=== PATIENT | male | born 1965 | race Caucasian/White ===

== ENCOUNTER 2021-07-23 15:37 | Emergency (ER) | payer SELFPAY ==
[~2021-07-23] VITALS: Ht 188 cm; Wt 83.9 kg
[2021-07-23] MEDS ORDERED: VANCOMYCIN 1,500 MG in D5W 5% 250 ML IV STA (21:17)
[2021-07-23] MEDS ORDERED: MORPHINE SULFATE 4 MG/ML SYR/VIAL IV ONE (21:30)
[2021-07-23] MEDS ORDERED: TETANUS-DIPTH-ACEL PERTUSSIS 0.5ML SYR Tdap IM ONE (21:30)
[2021-07-23] MEDS ORDERED: ONDANSETRON HCL 4 MG/2 ML VIAL IV ONE (21:30)
[2021-07-23] MEDS ORDERED: PIPERACILLIN-TAZO 4.5GM 100 ML IV ONE (21:30)
[2021-07-23] MEDS ORDERED: HYDROcodone-ACET 10/325MG TAB PO ONE (22:00)
[2021-07-23 22:26] LABS: Basophils # (auto) 0.1 10 ^3/uL (0-0.2); Basophils % (auto) 0.6 % (0.0-2.0); Eosinophils # (auto) 0.3 10 ^3/uL (0-0.8); Eosinophils % (auto) 2.9 % (0.0-7.0); Hematocrit 40.6 % (41.0-53.0); Hemoglobin 13.4 g/dL (13.5-17.5); Lymphocytes # (auto) 1.4 10 ^3/uL (0.4-5.4); Lymphocytes % (auto) 14.4 % (10.0-50.0); Mean Corpuscular Hemoglobin 29.2 pg (28.0-32.0); Mean Corpuscular Volume 88.3 fL (80.0-100.0); Monocytes # (auto) 1.1 10 ^3/uL (0-1.3); Monocytes % (auto) 10.5 % (0.0-12.0); Neutrophils # (auto) 7.2 10 ^3/uL (1.6-8.6); Neutrophils % (auto) 71.6 % (37.0-80.0); Nucleated Red Blood Cells % 0.1 %; Red Cell Distribution Width 13.5 % (11.8-14.3)
[2021-07-23 22:56] LABS: Calcium 8.8 mg/dL (8.5-10.1); Potassium 3.9 mmol/L (3.5-5.1)
[2021-07-23 22:58] LABS: BUN/Creatinine Ratio 15.5
[2021-07-24] MEDS ORDERED: VANCOMYCIN 1GM/250ML 250 ML IV ONE ×2 (04:00)
[2021-07-24 05:11] VITALS: BP 123/75
[2021-07-24] MEDS ORDERED: ONDANSETRON HCL 4 MG/2 ML VIAL IV ONE (05:15)
[2021-07-24] MEDS ORDERED: MORPHINE SULFATE 4 MG/ML SYR/VIAL IV ONE (05:15)
== END 2021-07-24 14:45 | disposition left against medical advice (07) ==
LOC: ER 15:37
DX: M86.8X4 Other osteomyelitis, hand (principal); Z53.29 Procedure and treatment not carried out because of patient's decision for other reasons
CPT/HCPCS: 36415; 73130; 80048; 83605; 85025; 85652; 87040; 90471; 90715; 96365; 96366; 96367; 96375; 99284; J2270; J2405; J2543; J3370; J7060

== ENCOUNTER 2023-06-18 14:52 | Inpatient (IN) | payer MEDICAID, OTHER ==
[~2023-06-18] VITALS: Ht 185.4 cm; Wt 74.0 kg
[2023-06-18 15:33] LABS: Basophils # (auto) 0.1 10 ^3/uL (0-0.2); Basophils % (auto) 0.6 % (0.0-2.0); Eosinophils # (auto) 0.3 10 ^3/uL (0-0.8); Lymphocytes % (auto) 17.3 % (10.0-50.0); White Blood Cell 11.7 10^3/uL (4.4-10.8)
[2023-06-18 15:35] LABS: Eosinophils % (auto) 2.4 % (0.0-7.0); Hemoglobin 7.9 g/dL (13.5-17.5); Mean Corpuscular Hemoglobin 19.9 pg (28.0-32.0); Mean Corpuscular Hgb Conc. 29.5 g/dL (32.0-36.0); Mean Corpuscular Volume 67.4 fL (80.0-100.0); Monocytes # (auto) 1.3 10 ^3/uL (0-1.3); Monocytes % (auto) 11.4 % (0.0-12.0); Neutrophils % (auto) 68.3 % (37.0-80.0); Nucleated Red Blood Cells % 0.1 %; Red Cell Distribution Width 17.7 % (11.8-14.3)
[2023-06-18 16:08] LABS: Alanine Aminotransferase 23 U/L (7-40); Albumin 4.2 g/dL (3.2-4.8); Alkaline Phosphatase 181 U/L (46-116); Anion Gap 6 (5-15); Aspartate Aminotransferase 33 U/L (13-40); BUN/Creatinine Ratio 19.7 (10.0-20.0); Blood Urea Nitrogen 15 mg/dL (9-23); Calcium 8.9 mg/dL (8.7-10.4); Carbon Dioxide 30 mmol/L (20-30); Chloride 101 mmol/L (98-107); Glucose 106 mg/dL (74-106); Potassium 3.6 mmol/L (3.5-5.1); Sodium 137 mmol/L (136-145)
[2023-06-18 16:09] LABS: Bilirubin, Total 0.4 mg/dL (0.2-1.0); Total Protein 7.6 g/dL (5.7-8.2)
[2023-06-18] MEDS ORDERED: ENOXAPARIN SOD 80 MG/0.8ML SYRINGE SC ONE (16:30)
[2023-06-18] MEDS ORDERED: methylPREDNISolone SOD SUCC 125 MG/2 ML VL IV ONE (16:30)
[2023-06-18] MEDS ORDERED: IOHEXOL 350 MG/ML 100ML IJ ONE (16:35)
[2023-06-18 17:30] LABS: Hypochromia Marked; Platelet Estimate Adequate
[2023-06-18] MEDS ORDERED: HEPARIN SODIUM (PORCINE) 5000 UNITS/ML 1ML VIAL IV ONE (17:45)
[2023-06-18] MEDS ORDERED: MORPHINE SULFATE INJ 2 MG/ml SYRG IV PRN (19:00)
[2023-06-18] MEDS ORDERED: NITROGLYCERIN 0.4 MG SL TAB SL PRN (19:00)
[2023-06-18] MEDS ORDERED: ALBUTEROL SULF 2.5 MG/0.5ML(0.5%) NEB SOLN NEB PRN (19:00)
[2023-06-18] MEDS: SODIUM CHLORIDE 0.9% 1,000 ML IV SCH (20:52)
[2023-06-18 21:16] VITALS: PULSE 107; RESP 20; O2SAT 93
[2023-06-18 22:30] VITALS: PULSE 105; RESP 18; O2SAT 95
[2023-06-18] MEDS: ALBUTEROL SULF 2.5 MG/0.5ML(0.5%) NEB SOLN NEB SCH (22:30)
[2023-06-18] MEDS: IPRATROPIUM BROM 0.5 MG/2.5ML INH SOL NEB SCH (22:31)
[2023-06-18 23:40] VITALS: BP 101/57; PULSE 104; RESP 20; TEMP 98.2; O2SAT 93
[2023-06-19] VITALS (21 sets, daily range): BP systolic 100–132; BP diastolic 57–65; PULSE 68–105; RESP 16–20; TEMP 97.3–98.8; O2SAT 93–100
[2023-06-19 00:30] LABS: COVID19 ANTIGEN SOFIA FIA NEGATIVE (NEGATIVE)
[2023-06-19 00:31] LABS: Rapid Influenza A Negative (Negative); Rapid Influenza B Negative (Negative)
[2023-06-19] MEDS: IPRATROPIUM BROM 0.5 MG/2.5ML INH SOL NEB SCH ×6 (02:48→22:01)
[2023-06-19] MEDS: ALBUTEROL SULF 2.5 MG/0.5ML(0.5%) NEB SOLN NEB SCH ×6 (02:48→22:01)
[2023-06-19 03:08] LABS: Urine Bacteria NONE SEEN /hpf (None Seen); Urine Blood Negative /uL (Negative); Urine Clarity Clear (Clear); Urine Color Yellow (Yellow); Urine Mucus FEW (None Seen); Urine Protein, UAD TRACE (Negative); Urine WBC <1 /hpf (0 - 3); Urine pH 5.5 (5.0-8.0)
[2023-06-19 03:16] LABS: Urine Specific Gravity > 1.050 (1.001-1.035)
[2023-06-19] MEDS: SODIUM CHLORIDE 0.9% 1,000 ML IV SCH ×2 (05:00→15:00)
[2023-06-19] MEDS: ENOXAPARIN SOD 80 MG/0.8ML SYRINGE SC SCH ×2 (06:31→18:33)
[2023-06-19 06:45] LABS: Basophils # (auto) 0 10 ^3/uL (0-0.2); Eosinophils # (auto) 0 10 ^3/uL (0-0.8); Hemoglobin 7.3 g/dL (13.5-17.5); Lymphocytes # (auto) 1.1 10 ^3/uL (0.4-5.4); Monocytes # (auto) 0.8 10 ^3/uL (0-1.3)
[2023-06-19 06:48] LABS: Basophils % (auto) 0.1 % (0.0-2.0); Hematocrit 23.2 % (41.0-53.0); Lymphocytes % (auto) 9.9 % (10.0-50.0); Mean Corpuscular Hemoglobin 21.2 pg (28.0-32.0); Mean Corpuscular Hgb Conc. 31.6 g/dL (32.0-36.0); Monocytes % (auto) 7.5 % (0.0-12.0); Neutrophils # (auto) 9.1 10 ^3/uL (1.6-8.6); Neutrophils % (auto) 82.5 % (37.0-80.0); Red Blood Cells 3.46 10^6/uL (4.5-5.90); Red Cell Distribution Width 17.4 % (11.8-14.3)
[2023-06-19 07:14] LABS: Alanine Aminotransferase 23 U/L (7-40); Alkaline Phosphatase 155 U/L (46-116); Anion Gap 10 (5-15); Aspartate Aminotransferase 29 U/L (13-40); Blood Urea Nitrogen 16 mg/dL (9-23); Calcium 8.7 mg/dL (8.5-10.1); Carbon Dioxide 24 mmol/L (20-30); Chloride 104 mmol/L (98-107); Glucose 140 mg/dL (74-106); Potassium 4.2 mmol/L (3.5-5.1); Sodium 138 mmol/L (136-145)
[2023-06-19 07:15] LABS: Albumin 3.8 g/dL (3.2-4.8); Bilirubin, Total 0.3 mg/dL (0.2-1.0); Total Protein 6.7 g/dL (5.7-8.2)
[2023-06-20] VITALS (24 sets, daily range): BP systolic 99–129; BP diastolic 55–70; PULSE 80–105; RESP 16–20; TEMP 97.6–98.6; O2SAT 93–100
[2023-06-20] MEDS: ALBUTEROL SULF 2.5 MG/0.5ML(0.5%) NEB SOLN NEB SCH ×6 (01:46→21:53)
[2023-06-20] MEDS: IPRATROPIUM BROM 0.5 MG/2.5ML INH SOL NEB SCH ×6 (01:46→21:53)
[2023-06-20 05:48] LABS: Basophils # (auto) 0.1 10 ^3/uL (0-0.2); Lymphocytes # (auto) 2.1 10 ^3/uL (0.4-5.4)
[2023-06-20 05:51] LABS: Basophils % (auto) 0.6 % (0.0-2.0); Eosinophils # (auto) 0.1 10 ^3/uL (0-0.8); Eosinophils % (auto) 1.3 % (0.0-7.0); Hematocrit 22.1 % (41.0-53.0); Lymphocytes % (auto) 17.8 % (10.0-50.0); Mean Corpuscular Hemoglobin 20.6 pg (28.0-32.0); Mean Corpuscular Hgb Conc. 30.7 g/dL (32.0-36.0); Mean Corpuscular Volume 67.3 fL (80.0-100.0); Monocytes # (auto) 1.2 10 ^3/uL (0-1.3); Monocytes % (auto) 10.7 % (0.0-12.0); Neutrophils # (auto) 8.1 10 ^3/uL (1.6-8.6); Neutrophils % (auto) 69.6 % (37.0-80.0); Red Blood Cells 3.28 10^6/uL (4.5-5.90); Red Cell Distribution Width 17.5 % (11.8-14.3); White Blood Cell 11.6 10^3/uL (4.4-10.8)
[2023-06-20] MEDS: SODIUM CHLORIDE 0.9% 1,000 ML IV SCH ×3 (05:56→21:00)
[2023-06-20 06:01] LABS: Hemoglobin 6.8 g/dL (13.5-17.5)
[2023-06-20 06:07] LABS: Alanine Aminotransferase 20 U/L (7-40); Alkaline Phosphatase 147 U/L (46-116); Anion Gap 5 (5-15); BUN/Creatinine Ratio 22.2 (10.0-20.0); Blood Urea Nitrogen 16 mg/dL (9-23); Calcium 8.4 mg/dL (8.7-10.4); Carbon Dioxide 27 mmol/L (20-30); Chloride 105 mmol/L (98-107); Glucose 100 mg/dL (74-106); Potassium 4.2 mmol/L (3.5-5.1); Sodium 137 mmol/L (136-145)
[2023-06-20 06:09] LABS: Albumin 3.5 g/dL (3.2-4.8); Aspartate Aminotransferase 27 U/L (13-40); Bilirubin, Total 0.3 mg/dL (0.2-1.0); Total Protein 6.4 g/dL (5.7-8.2)
[2023-06-20] MEDS: ACETAMINOPHEN 325 MG TAB PO PRN ×2 (07:06→23:41)
[2023-06-20] MEDS: ENOXAPARIN SOD 80 MG/0.8ML SYRINGE SC SCH ×2 (07:06→18:04)
[2023-06-20 08:06] LABS: AFP Serum Tumor Marker <1.8 ng/mL (0.0-8.4)
[2023-06-20 14:41] LABS: Hepatitis B Surface Antigen Negative (Negative)
[2023-06-20 15:01] LABS: Hepatitis A Ab IgM Negative
[2023-06-20 15:02] LABS: Hepatitis B Core IgM Negative
[2023-06-20 15:03] LABS: Hepatitis C Antibody Negative (Negative)
[2023-06-20 17:33] LABS: Hematocrit 46.6 % (41.0-53.0); Hemoglobin 14.9 g/dL (13.5-17.5)
[2023-06-21] VITALS (20 sets, daily range): BP systolic 107–124; BP diastolic 65–73; PULSE 82–106; RESP 16–18; TEMP 98.6–98.9; O2SAT 92–100
[2023-06-21] MEDS: ALBUTEROL SULF 2.5 MG/0.5ML(0.5%) NEB SOLN NEB SCH ×6 (01:58→22:15)
[2023-06-21] MEDS: IPRATROPIUM BROM 0.5 MG/2.5ML INH SOL NEB SCH ×6 (01:58→22:15)
[2023-06-21] MEDS: ENOXAPARIN SOD 80 MG/0.8ML SYRINGE SC SCH ×2 (06:27→20:27)
[2023-06-21] MEDS: ACETAMINOPHEN 325 MG TAB PO PRN ×2 (06:27→20:25)
[2023-06-21] MEDS: SODIUM CHLORIDE 0.9% 1,000 ML IV SCH ×2 (06:28→17:00)
[2023-06-21 07:56] LABS: Basophils # (auto) 0 10 ^3/uL (0-0.2); Eosinophils # (auto) 0.3 10 ^3/uL (0-0.8); Hemoglobin 8.6 g/dL (13.5-17.5); Lymphocytes # (auto) 1.4 10 ^3/uL (0.4-5.4); Mean Corpuscular Volume 69.2 fL (80.0-100.0); White Blood Cell 9.6 10^3/uL (4.4-10.8)
[2023-06-21 07:59] LABS: Basophils % (auto) 0.5 % (0.0-2.0); Eosinophils % (auto) 2.7 % (0.0-7.0); Hematocrit 27.4 % (41.0-53.0); Lymphocytes % (auto) 14.3 % (10.0-50.0); Mean Corpuscular Hemoglobin 21.7 pg (28.0-32.0); Mean Corpuscular Hgb Conc. 31.3 g/dL (32.0-36.0); Monocytes % (auto) 10.5 % (0.0-12.0); Red Blood Cells 3.96 10^6/uL (4.5-5.90); Red Cell Distribution Width 19.1 % (11.8-14.3)
[2023-06-21 08:06] LABS: PSA Free 0.08 ng/mL; Prostate Specific Antigen 0.4 ng/mL (0.0-4.0)
[2023-06-21 08:14] LABS: Alanine Aminotransferase 30 U/L (7-40); Albumin 3.9 g/dL (3.2-4.8); Alkaline Phosphatase 178 U/L (46-116); Anion Gap 9 (5-15); Aspartate Aminotransferase 33 U/L (13-40); BUN/Creatinine Ratio 21.2 (10.0-20.0); Bilirubin, Total 0.4 mg/dL (0.2-1.0); Blood Urea Nitrogen 14 mg/dL (9-23); Calcium 9.1 mg/dL (8.5-10.1); Carbon Dioxide 26 mmol/L (20-30); Chloride 101 mmol/L (98-107); Glucose 95 mg/dL (74-106); Potassium 4.2 mmol/L (3.5-5.1); Sodium 136 mmol/L (136-145)
[2023-06-21] MEDS ORDERED: ONDANSETRON ODT 4 MG TAB PO ONE (15:00)
[2023-06-22] VITALS (16 sets, daily range): BP systolic 106–128; BP diastolic 48–80; PULSE 70–103; RESP 16–20; TEMP 37; O2SAT 90–100
[2023-06-22] MEDS: SODIUM CHLORIDE 0.9% 1,000 ML IV SCH ×3 (00:32→23:00)
[2023-06-22] MEDS: IPRATROPIUM BROM 0.5 MG/2.5ML INH SOL NEB SCH ×6 (02:00→22:46)
[2023-06-22] MEDS: ALBUTEROL SULF 2.5 MG/0.5ML(0.5%) NEB SOLN NEB SCH ×6 (02:00→22:46)
[2023-06-22] MEDS: ENOXAPARIN SOD 80 MG/0.8ML SYRINGE SC SCH ×2 (06:53→17:59)
[2023-06-22 07:15] LABS: Basophils # (auto) 0.1 10 ^3/uL (0-0.2); Eosinophils # (auto) 0.2 10 ^3/uL (0-0.8); Neutrophils # (auto) 8.6 10 ^3/uL (1.6-8.6)
[2023-06-22 07:16] LABS: Basophils % (auto) 0.5 % (0.0-2.0); Eosinophils % (auto) 1.6 % (0.0-7.0); Hematocrit 28.2 % (41.0-53.0); Hemoglobin 8.8 g/dL (13.5-17.5); Lymphocytes # (auto) 1.3 10 ^3/uL (0.4-5.4); Mean Corpuscular Hemoglobin 21.7 pg (28.0-32.0); Mean Corpuscular Hgb Conc. 31.1 g/dL (32.0-36.0); Mean Corpuscular Volume 69.8 fL (80.0-100.0); Monocytes # (auto) 1.2 10 ^3/uL (0-1.3); Monocytes % (auto) 10.8 % (0.0-12.0); Neutrophils % (auto) 76.1 % (37.0-80.0); Red Blood Cells 4.04 10^6/uL (4.5-5.90); White Blood Cell 11.3 10^3/uL (4.4-10.8)
[2023-06-22 07:40] LABS: Alanine Aminotransferase 36 U/L (7-40); Albumin 3.9 g/dL (3.2-4.8); Alkaline Phosphatase 179 U/L (46-116); Anion Gap 11 (5-15); Aspartate Aminotransferase 52 U/L (13-40); Blood Urea Nitrogen 18 mg/dL (9-23); Calcium 9.1 mg/dL (8.5-10.1); Carbon Dioxide 24 mmol/L (20-30); Chloride 98 mmol/L (98-107); Glucose 87 mg/dL (74-106); Potassium 4.5 mmol/L (3.5-5.1); Sodium 133 mmol/L (136-145)
[2023-06-22 07:41] LABS: Bilirubin, Total 0.4 mg/dL (0.2-1.0); Total Protein 7.1 g/dL (5.7-8.2)
[2023-06-22 09:58] LABS: Hypochromia Moderate
[2023-06-22 09:59] LABS: Ovalocytes FEW; Platelet Estimate Adequate
[2023-06-22] MEDS: ACETAMINOPHEN 325 MG TAB PO PRN (16:09)
[2023-06-23] VITALS (18 sets, daily range): BP systolic 102–127; BP diastolic 62–75; PULSE 75–100; RESP 16–20; TEMP 97.6–98.9; O2SAT 93–99
[2023-06-23] MEDS: ALBUTEROL SULF 2.5 MG/0.5ML(0.5%) NEB SOLN NEB SCH ×6 (02:00→21:49)
[2023-06-23] MEDS: IPRATROPIUM BROM 0.5 MG/2.5ML INH SOL NEB SCH ×6 (02:00→21:49)
[2023-06-23] MEDS: ENOXAPARIN SOD 80 MG/0.8ML SYRINGE SC SCH ×2 (05:55→18:06)
[2023-06-23 07:06] LABS: Basophils # (auto) 0.1 10 ^3/uL (0-0.2); Eosinophils # (auto) 0.4 10 ^3/uL (0-0.8); Lymphocytes # (auto) 1.6 10 ^3/uL (0.4-5.4); Monocytes # (auto) 1.5 10 ^3/uL (0-1.3); Neutrophils # (auto) 8.4 10 ^3/uL (1.6-8.6)
[2023-06-23 07:09] LABS: Basophils % (auto) 0.6 % (0.0-2.0); Eosinophils % (auto) 3.3 % (0.0-7.0); Hematocrit 29.2 % (41.0-53.0); Hemoglobin 8.9 g/dL (13.5-17.5); Lymphocytes % (auto) 13.7 % (10.0-50.0); Mean Corpuscular Hemoglobin 21.2 pg (28.0-32.0); Mean Corpuscular Hgb Conc. 30.6 g/dL (32.0-36.0); Mean Corpuscular Volume 69.3 fL (80.0-100.0); Monocytes % (auto) 12.5 % (0.0-12.0); Neutrophils % (auto) 69.9 % (37.0-80.0); Red Blood Cells 4.22 10^6/uL (4.5-5.90); Red Cell Distribution Width 19.2 % (11.8-14.3)
[2023-06-23 08:56] LABS: Alanine Aminotransferase 44 U/L (7-40); Alkaline Phosphatase 209 U/L (46-116); Anion Gap 9 (5-15); BUN/Creatinine Ratio 20.5 (10.0-20.0); Blood Urea Nitrogen 16 mg/dL (9-23); Calcium 8.9 mg/dL (8.7-10.4); Carbon Dioxide 25 mmol/L (20-30); Chloride 99 mmol/L (98-107); Glucose 94 mg/dL (74-106); Potassium 4.5 mmol/L (3.5-5.1); Sodium 133 mmol/L (136-145)
[2023-06-23 08:57] LABS: Albumin 4.1 g/dL (3.2-4.8); Aspartate Aminotransferase 54 U/L (13-40)
[2023-06-23 08:58] LABS: Bilirubin, Total 0.5 mg/dL (0.2-1.0); Total Protein 7.3 g/dL (5.7-8.2)
[2023-06-23] MEDS: SODIUM CHLORIDE 0.9% 1,000 ML IV SCH ×2 (09:00→18:50)
[2023-06-23 10:28] LABS: Platelet Estimate Adequate
[2023-06-23 10:29] LABS: Hypochromia Moderate; Target Cell FEW
[2023-06-23 10:30] LABS: Anisocytosis Slight
[2023-06-23] MEDS ORDERED: HYDROcodone-ACET 5/325MG TAB PO ONE (21:45)
[2023-06-23] MEDS ORDERED: ONDANSETRON HCL 4 MG/2 ML VIAL IV PRN (21:45)
[2023-06-24] VITALS (18 sets, daily range): BP systolic 105–117; BP diastolic 2–71; PULSE 76–95; RESP 16–20; TEMP 97.6–98.6; O2SAT 91–100
[2023-06-24] MEDS: ALBUTEROL SULF 2.5 MG/0.5ML(0.5%) NEB SOLN NEB SCH ×6 (02:00→22:25)
[2023-06-24] MEDS: IPRATROPIUM BROM 0.5 MG/2.5ML INH SOL NEB SCH ×6 (02:00→22:25)
[2023-06-24 06:43] LABS: Mean Corpuscular Volume 69.7 fL (80.0-100.0)
[2023-06-24 06:46] LABS: Basophils # (auto) 0 10 ^3/uL (0-0.2); Basophils % (auto) 0.4 % (0.0-2.0); Eosinophils # (auto) 0.4 10 ^3/uL (0-0.8); Eosinophils % (auto) 3.3 % (0.0-7.0); Hematocrit 28.6 % (41.0-53.0); Hemoglobin 8.6 g/dL (13.5-17.5); Lymphocytes # (auto) 1.6 10 ^3/uL (0.4-5.4); Lymphocytes % (auto) 14.1 % (10.0-50.0); Mean Corpuscular Hemoglobin 20.9 pg (28.0-32.0); Monocytes # (auto) 1.5 10 ^3/uL (0-1.3); Neutrophils # (auto) 7.9 10 ^3/uL (1.6-8.6); Neutrophils % (auto) 69.2 % (37.0-80.0); Red Blood Cells 4.11 10^6/uL (4.5-5.90); White Blood Cell 11.5 10^3/uL (4.4-10.8)
[2023-06-24] MEDS: ENOXAPARIN SOD 80 MG/0.8ML SYRINGE SC SCH ×2 (06:46→18:16)
[2023-06-24] MEDS: SODIUM CHLORIDE 0.9% 1,000 ML IV SCH ×2 (06:48→17:44)
[2023-06-24 06:56] LABS: Chloride 102 mmol/L (98-107); Potassium 4.2 mmol/L (3.5-5.1); Sodium 136 mmol/L (136-145)
[2023-06-24 06:57] LABS: Anion Gap 7 (5-15); Calcium 8.9 mg/dL (8.5-10.1); Carbon Dioxide 27 mmol/L (20-30)
[2023-06-24 07:02] LABS: BUN/Creatinine Ratio 23.5 (10.0-20.0); Blood Urea Nitrogen 16 mg/dL (9-23); Glucose 86 mg/dL (74-106)
[2023-06-24 07:21] LABS: Red Cell Distribution Width 20.8 % (11.8-14.3)
[2023-06-24] MEDS: ACETAMINOPHEN 325 MG TAB PO PRN (23:29)
[2023-06-25] VITALS (13 sets, daily range): BP systolic 110–122; BP diastolic 63–68; PULSE 79–103; RESP 16–18; TEMP 97.3–98.4; O2SAT 95–100
[2023-06-25] MEDS: SODIUM CHLORIDE 0.9% 1,000 ML IV SCH ×2 (01:14→10:26)
[2023-06-25] MEDS: IPRATROPIUM BROM 0.5 MG/2.5ML INH SOL NEB SCH ×5 (02:00→18:48)
[2023-06-25] MEDS: ALBUTEROL SULF 2.5 MG/0.5ML(0.5%) NEB SOLN NEB SCH ×5 (02:00→18:48)
[2023-06-25] MEDS: ENOXAPARIN SOD 80 MG/0.8ML SYRINGE SC SCH ×3 (06:19→17:37)
[2023-06-25 06:55] LABS: Basophils # (auto) 0.1 10 ^3/uL (0-0.2); Eosinophils # (auto) 0.4 10 ^3/uL (0-0.8); Eosinophils % (auto) 3.8 % (0.0-7.0); Lymphocytes # (auto) 1.5 10 ^3/uL (0.4-5.4); Monocytes # (auto) 1.5 10 ^3/uL (0-1.3); Neutrophils # (auto) 7.9 10 ^3/uL (1.6-8.6)
[2023-06-25 06:58] LABS: Chloride 104 mmol/L (98-107); Sodium 137 mmol/L (136-145)
[2023-06-25 06:59] LABS: Anion Gap 7 (5-15); Basophils % (auto) 0.6 % (0.0-2.0); Calcium 8.6 mg/dL (8.5-10.1); Carbon Dioxide 26 mmol/L (20-30); Hematocrit 25.2 % (41.0-53.0); Hemoglobin 7.6 g/dL (13.5-17.5); Lymphocytes % (auto) 13.4 % (10.0-50.0); Mean Corpuscular Hemoglobin 21.2 pg (28.0-32.0); Mean Corpuscular Hgb Conc. 30.4 g/dL (32.0-36.0); Mean Corpuscular Volume 69.7 fL (80.0-100.0); Monocytes % (auto) 13.3 % (0.0-12.0); Neutrophils % (auto) 68.9 % (37.0-80.0); Nucleated Red Blood Cells % 0.1 %; Red Blood Cells 3.61 10^6/uL (4.5-5.90); White Blood Cell 11.4 10^3/uL (4.4-10.8)
[2023-06-25 07:04] LABS: BUN/Creatinine Ratio 20.9 (10.0-20.0); Blood Urea Nitrogen 14 mg/dL (9-23); Glucose 93 mg/dL (74-106)
[2023-06-25 07:15] LABS: Red Cell Distribution Width 20.6 % (11.8-14.3)
[2023-06-25 08:49] LABS: Anisocytosis Slight
[2023-06-25 08:50] LABS: Hypochromia Moderate
[2023-06-25 08:52] LABS: Platelet Estimate Increased
[2023-06-25] MEDS: ACETAMINOPHEN 325 MG TAB PO PRN ×2 (10:30→20:31)
[2023-06-25] MEDS ORDERED: IOHEXOL 300 MG/ML 100ML BOTTLE IJ ONE (14:37)
[2023-06-25 15:25] LABS: INR 1.11 (0.9-1.15); Partial Thromboplastin Time 31.6 SEC (24.5-34.5); Prothrombin Time 11.6 sec (9.3-11.8)
[2023-06-26 05:00] VITALS: BP 117/51; PULSE 68; RESP 18; TEMP 97.7; O2SAT 97
[2023-06-26 08:00] VITALS: BP 116/65; PULSE 88; RESP 16; TEMP 98.2; O2SAT 96
[2023-06-26 08:02] LABS: Basophils # (auto) 0.1 10 ^3/uL (0-0.2); Basophils % (auto) 0.6 % (0.0-2.0); Eosinophils # (auto) 0.4 10 ^3/uL (0-0.8); Neutrophils % (auto) 71.8 % (37.0-80.0)
[2023-06-26 08:06] LABS: Eosinophils % (auto) 4.1 % (0.0-7.0); Hematocrit 27.1 % (41.0-53.0); Hemoglobin 8.5 g/dL (13.5-17.5); Lymphocytes # (auto) 1.2 10 ^3/uL (0.4-5.4); Lymphocytes % (auto) 11.6 % (10.0-50.0); Mean Corpuscular Hemoglobin 21.9 pg (28.0-32.0); Mean Corpuscular Hgb Conc. 31.2 g/dL (32.0-36.0); Monocytes # (auto) 1.3 10 ^3/uL (0-1.3); Monocytes % (auto) 11.9 % (0.0-12.0); Neutrophils # (auto) 7.6 10 ^3/uL (1.6-8.6); Red Blood Cells 3.87 10^6/uL (4.5-5.90); White Blood Cell 10.6 10^3/uL (4.4-10.8)
[2023-06-26 08:09] LABS: Chloride 101 mmol/L (98-107); Sodium 135 mmol/L (136-145)
[2023-06-26 08:10] LABS: Anion Gap 5 (5-15); Carbon Dioxide 29 mmol/L (20-30)
[2023-06-26 08:11] LABS: Calcium 9.1 mg/dL (8.5-10.1)
[2023-06-26 08:15] LABS: BUN/Creatinine Ratio 20.3 (10.0-20.0); Blood Urea Nitrogen 13 mg/dL (9-23); Glucose 92 mg/dL (74-106)
[2023-06-26] MEDS ORDERED: fentaNYL CITRATE 100 MCG/2 ML VL IV ONE (08:30)
[2023-06-26] MEDS ORDERED: MIDAZOLAM HCL 2MG/2ML 2ml VIAL (1mg/ml) IV ONE (08:30)
[2023-06-26 08:40] LABS: Red Cell Distribution Width 20.9 % (11.8-14.3)
[2023-06-26] MEDS ORDERED: NALOXONE HCL 1MG/ML 2ML SYRINGE ONE (08:43)
[2023-06-26] MEDS ORDERED: LIDOCAINE 2%HCL (LOCAL ANESTH.) INJ 10ml MDV ONE (08:45)
[2023-06-26 09:20] LABS: Anisocytosis Slight; Platelet Estimate Increased
[2023-06-26 09:21] LABS: Hypochromia Moderate
[2023-06-26] MEDS ORDERED: APIX5TAB PO ×2 (10:30)
[2023-06-26 11:06] LABS: Ferritin 40.8 ng/mL (22-322)
[2023-06-26 12:00] VITALS: BP 104/64; PULSE 94; RESP 16; TEMP 98.5; O2SAT 97
[2023-06-26 12:44] VITALS: O2SAT 93
[2023-06-26 16:00] VITALS: BP 108/62; PULSE 107; RESP 18; TEMP 98; O2SAT 93
== END 2023-06-26 17:32 | disposition home or self-care (01) | DRG 133 ==
LOC: ER 14:52 → TELE 19:00 → TELE-WESTW 23:43 → WEST WING 06-24 12:45
PROVIDERS: ADMIT Internal Medicine Pulmonary Disease; ATTEND Internal Medicine Pulmonary Disease
PROC: 30233N1 Transfusion of Nonautologous Red Blood Cells into Peripheral Vein, Percutaneous Approach (ICD-10-PCS; principal; 2023-06-20)
PROC: 0FB13ZX Excision of Right Lobe Liver, Percutaneous Approach, Diagnostic (ICD-10-PCS; 2023-06-26)
DX: J96.01 Acute respiratory failure with hypoxia (principal); I26.99 Other pulmonary embolism without acute cor pulmonale; I82.432 Acute embolism and thrombosis of left popliteal vein; R16.0 Hepatomegaly, not elsewhere classified; E11.65 Type 2 diabetes mellitus with hyperglycemia; D50.9 Iron deficiency anemia, unspecified; R74.8 Abnormal levels of other serum enzymes; R60.0 Localized edema; Z20.822 Contact with and (suspected) exposure to COVID-19; F17.210 Nicotine dependence, cigarettes, uncomplicated; I82.443 Acute embolism and thrombosis of tibial vein, bilateral
CPT/HCPCS: 10005; 36415; 71045; 71275; 74150; 74178; 76705; 77012; 80048; 80053; 80074; 81001; 82105; 82270; 82378; 82607; 82728; 83036; 83540; 83550; 83615; 83880; 84154; 84484; 85014; 85018; 85025; 85379; 85610; 85730; 86301; 86703; 86850; 86900; 86901; 86920; 87426; 87804; 93005; 93970; 94640; G0378; J2001; J2250; J2405; Q0162

== ENCOUNTER 2023-06-28 12:39 | Inpatient (IN) | payer MEDICAID ==
[~2023-06-28] VITALS: Ht 188 cm; Wt 75.3 kg
[2023-06-28] VITALS (7 sets, daily range): BP systolic 102; BP diastolic 71; PULSE 86–107; RESP 16–19; TEMP 99.5; O2SAT 10–100
[2023-06-28] MEDS ORDERED: methylPREDNISolone SOD SUCC 125 MG/2 ML VL IV ONE (13:00)
[2023-06-28 13:51] LABS: Basophils # (auto) 0 10 ^3/uL (0-0.2); Basophils % (auto) 0.4 % (0.0-2.0); Eosinophils # (auto) 0.2 10 ^3/uL (0-0.8); Eosinophils % (auto) 2.1 % (0.0-7.0); Hematocrit 26.6 % (41.0-53.0); Hemoglobin 8.2 g/dL (13.5-17.5); Lymphocytes # (auto) 1.5 10 ^3/uL (0.4-5.4); Lymphocytes % (auto) 12.7 % (10.0-50.0); Mean Corpuscular Hemoglobin 21.6 pg (28.0-32.0); Mean Corpuscular Hgb Conc. 30.9 g/dL (32.0-36.0); Mean Corpuscular Volume 69.8 fL (80.0-100.0); Monocytes # (auto) 1.5 10 ^3/uL (0-1.3); Monocytes % (auto) 13.1 % (0.0-12.0); Neutrophils # (auto) 8.3 10 ^3/uL (1.6-8.6); Neutrophils % (auto) 71.7 % (37.0-80.0); Red Blood Cells 3.81 10^6/uL (4.5-5.90); Red Cell Distribution Width 21.6 % (11.8-14.3); White Blood Cell 11.5 10^3/uL (4.4-10.8)
[2023-06-28 14:04] LABS: Alanine Aminotransferase 75 U/L (7-40); Albumin 4.1 g/dL (3.2-4.8); Alkaline Phosphatase 229 U/L (46-116); Anion Gap 5 (5-15); Aspartate Aminotransferase 47 U/L (13-40); BUN/Creatinine Ratio 32.4 (10.0-20.0); Blood Urea Nitrogen 23 mg/dL (9-23); Carbon Dioxide 31 mmol/L (20-30); Chloride 100 mmol/L (98-107); Glucose 88 mg/dL (74-106); Potassium 4.1 mmol/L (3.5-5.1); Sodium 136 mmol/L (136-145)
[2023-06-28 14:05] LABS: Bilirubin, Total 0.4 mg/dL (0.2-1.0)
[2023-06-28] MEDS ORDERED: APIX5TAB PO (14:43)
[2023-06-28] MEDS ORDERED: ALBUTEROL SULF 2.5 MG/0.5ML(0.5%) NEB SOLN NEB PRN (14:45)
[2023-06-28] MEDS ORDERED: IOHEXOL 350 MG/ML 100ML IJ ONE (14:57)
[2023-06-28] MEDS ORDERED: FERROUS SULFATE 325mg EC TAB PO ONE (15:15)
[2023-06-28] MEDS ORDERED: ASPirin 325 MG TAB PO ONE (15:15)
[2023-06-28] MEDS: SODIUM CHLORIDE 0.9% 1,000 ML IV SCH (18:57)
[2023-06-28] MEDS: FERROUS SULFATE 325mg EC TAB PO SCH (18:57)
[2023-06-28] MEDS: IPRATROPIUM BROM 0.5 MG/2.5ML INH SOL NEB SCH ×2 (20:16→22:46)
[2023-06-28] MEDS: ALBUTEROL SULF 2.5 MG/0.5ML(0.5%) NEB SOLN NEB SCH ×2 (20:17→22:46)
[2023-06-29] VITALS (16 sets, daily range): BP systolic 108–124; BP diastolic 58–68; PULSE 84–100; RESP 14–19; TEMP 97.3–98.7; O2SAT 91–100
[2023-06-29] MEDS: IPRATROPIUM BROM 0.5 MG/2.5ML INH SOL NEB SCH ×4 (02:18→10:10)
[2023-06-29] MEDS: ALBUTEROL SULF 2.5 MG/0.5ML(0.5%) NEB SOLN NEB SCH ×4 (02:18→10:10)
[2023-06-29 04:49] LABS: Urine Bacteria FEW /hpf (None Seen); Urine Blood Negative /uL (Negative); Urine Clarity Clear (Clear); Urine Color Yellow (Yellow); Urine Mucus FEW (None Seen); Urine Protein, UAD TRACE (Negative); Urine WBC 1 /hpf (0 - 3); Urine pH 5.5 (5.0-8.0)
[2023-06-29 06:22] LABS: Alanine Aminotransferase 54 U/L (7-40); Albumin 3.7 g/dL (3.2-4.8); Alkaline Phosphatase 194 U/L (46-116); Anion Gap 7 (5-15); Aspartate Aminotransferase 33 U/L (13-40); BUN/Creatinine Ratio 31.4 (10.0-20.0); Bilirubin, Total 0.2 mg/dL (0.2-1.0); Blood Urea Nitrogen 22 mg/dL (9-23); Calcium 8.7 mg/dL (8.7-10.4); Carbon Dioxide 27 mmol/L (20-30); Chloride 102 mmol/L (98-107); Glucose 119 mg/dL (74-106); Potassium 4.3 mmol/L (3.5-5.1); Sodium 136 mmol/L (136-145); Total Protein 6.6 g/dL (5.7-8.2)
[2023-06-29 07:02] LABS: Basophils # (auto) 0 10 ^3/uL (0-0.2); Basophils % (auto) 0.2 % (0.0-2.0); Eosinophils # (auto) 0 10 ^3/uL (0-0.8); Mean Corpuscular Volume 68.9 fL (80.0-100.0); Monocytes # (auto) 0.8 10 ^3/uL (0-1.3)
[2023-06-29 07:05] LABS: Hematocrit 22.2 % (41.0-53.0); Lymphocytes # (auto) 1.1 10 ^3/uL (0.4-5.4); Lymphocytes % (auto) 8.6 % (10.0-50.0); Mean Corpuscular Hemoglobin 21.2 pg (28.0-32.0); Mean Corpuscular Hgb Conc. 30.8 g/dL (32.0-36.0); Monocytes % (auto) 6.5 % (0.0-12.0); Neutrophils # (auto) 10.8 10 ^3/uL (1.6-8.6); Neutrophils % (auto) 84.7 % (37.0-80.0); Nucleated Red Blood Cells % 0.2 %; Red Blood Cells 3.23 10^6/uL (4.5-5.90); White Blood Cell 12.7 10^3/uL (4.4-10.8)
[2023-06-29 07:29] LABS: Hemoglobin 6.9 g/dL (13.5-17.5); Red Cell Distribution Width 21.5 % (11.8-14.3)
[2023-06-29] MEDS ORDERED: APIXABAN 5 MG TAB PO SCH ×2 (10:00→22:00)
[2023-06-29] MEDS ORDERED: ASPirin 81 mg TAB PO SCH (10:00)
[2023-06-29] MEDS: FERROUS SULFATE 325mg EC TAB PO SCH ×2 (10:06→17:57)
[2023-06-29] MEDS: SODIUM CHLORIDE 0.9% 1,000 ML IV SCH (10:13)
[2023-06-29] MEDS ORDERED: ALBUTEROL SULF 2.5 MG/0.5ML(0.5%) NEB SOLN NEB PRN ×2 (10:30→10:45)
[2023-06-29] MEDS ORDERED: IPRATROPIUM BROM 0.5 MG/2.5ML INH SOL NEB PRN (10:45)
[2023-06-29] MEDS ORDERED: PANTOPRAZOLE 40 MG/10 ML VIAL INJ IV ONE (11:00)
[2023-06-29 11:44] LABS: INR 1.09 (0.9-1.15); Partial Thromboplastin Time 29.1 SEC (24.5-34.5); Prothrombin Time 11.4 sec (9.3-11.8)
[2023-06-29] MEDS ORDERED: ACETAMINOPHEN 500 MG TAB PO PRN (15:00)
[2023-06-29] MEDS: ONDANSETRON HCL 4 MG/2 ML VIAL IV PRN (15:20)
[2023-06-29] MEDS: traMADol HCL 50 MG TAB PO PRN (15:21)
[2023-06-29 18:55] LABS: Basophils # (auto) 0 10 ^3/uL (0-0.2); Basophils % (auto) 0.3 % (0.0-2.0); Eosinophils # (auto) 0.2 10 ^3/uL (0-0.8); Eosinophils % (auto) 1.1 % (0.0-7.0); Hematocrit 23.6 % (41.0-53.0); Hemoglobin 7.4 g/dL (13.5-17.5); Lymphocytes # (auto) 2.2 10 ^3/uL (0.4-5.4); Lymphocytes % (auto) 15.1 % (10.0-50.0); Mean Corpuscular Hemoglobin 22.8 pg (28.0-32.0); Mean Corpuscular Hgb Conc. 31.4 g/dL (32.0-36.0); Mean Corpuscular Volume 72.6 fL (80.0-100.0); Monocytes # (auto) 1.6 10 ^3/uL (0-1.3); Monocytes % (auto) 10.9 % (0.0-12.0); Neutrophils # (auto) 10.4 10 ^3/uL (1.6-8.6); Neutrophils % (auto) 72.6 % (37.0-80.0); Red Blood Cells 3.25 10^6/uL (4.5-5.90); Red Cell Distribution Width 25.4 % (11.8-14.3); White Blood Cell 14.3 10^3/uL (4.4-10.8)
[2023-06-29] MEDS ORDERED: NICOTINE 21MG/24 HR TOPICAL PATCH TD ONE (20:00)
[2023-06-29] MEDS ORDERED: BISACODYL 5 MG EC TAB PO ONE (20:00)
[2023-06-29] MEDS: ENOXAPARIN SOD 100 MG/1 ML SYRINGE SC SCH (21:00)
[2023-06-29] MEDS: PANTOPRAZOLE 40 MG/10 ML VIAL INJ IV SCH (21:01)
[2023-06-30] VITALS (8 sets, daily range): BP systolic 107–120; BP diastolic 62–66; PULSE 61–96; RESP 18–20; TEMP 98.4–98.6; O2SAT 95–100
[2023-06-30] MEDS: traMADol HCL 50 MG TAB PO PRN ×2 (01:23→19:59)
[2023-06-30 06:21] LABS: Basophils # (auto) 0 10 ^3/uL (0-0.2); Basophils % (auto) 0.4 % (0.0-2.0); Eosinophils # (auto) 0.3 10 ^3/uL (0-0.8); Hemoglobin 7.4 g/dL (13.5-17.5); Monocytes # (auto) 1.3 10 ^3/uL (0-1.3)
[2023-06-30 06:23] LABS: Eosinophils % (auto) 2.8 % (0.0-7.0); Hematocrit 23.4 % (41.0-53.0); Lymphocytes # (auto) 1.2 10 ^3/uL (0.4-5.4); Lymphocytes % (auto) 10.7 % (10.0-50.0); Mean Corpuscular Hemoglobin 23.1 pg (28.0-32.0); Mean Corpuscular Hgb Conc. 31.7 g/dL (32.0-36.0); Mean Corpuscular Volume 72.9 fL (80.0-100.0); Monocytes % (auto) 11.5 % (0.0-12.0); Neutrophils # (auto) 8.5 10 ^3/uL (1.6-8.6); Neutrophils % (auto) 74.6 % (37.0-80.0); White Blood Cell 11.4 10^3/uL (4.4-10.8)
[2023-06-30 06:57] LABS: Red Cell Distribution Width 24.5 % (11.8-14.3)
[2023-06-30 07:01] LABS: Alanine Aminotransferase 39 U/L (7-40); Albumin 3.5 g/dL (3.2-4.8); Alkaline Phosphatase 170 U/L (46-116); Anion Gap 7 (5-15); Aspartate Aminotransferase 29 U/L (13-40); Bilirubin, Total 0.5 mg/dL (0.2-1.0); Blood Urea Nitrogen 22 mg/dL (9-23); Calcium 8.4 mg/dL (8.7-10.4); Carbon Dioxide 26 mmol/L (20-30); Chloride 102 mmol/L (98-107); Glucose 84 mg/dL (74-106); Magnesium 1.8 mg/dL (1.6-2.6); Sodium 135 mmol/L (136-145)
[2023-06-30 07:02] LABS: Total Protein 6.2 g/dL (5.7-8.2)
[2023-06-30] MEDS ORDERED: GOLYTELY 4L KIT PO ONE (09:00)
[2023-06-30] MEDS: ENOXAPARIN SOD 100 MG/1 ML SYRINGE SC SCH ×2 (09:18→22:00)
[2023-06-30] MEDS: FERROUS SULFATE 325mg EC TAB PO SCH ×2 (09:19→17:33)
[2023-06-30] MEDS: PANTOPRAZOLE 40 MG/10 ML VIAL INJ IV SCH ×2 (09:23→19:59)
[2023-06-30] MEDS: NICOTINE 21MG/24 HR TOPICAL PATCH TD SCH (09:24)
[2023-06-30] MEDS: ONDANSETRON HCL 4 MG/2 ML VIAL IV PRN (10:53)
[2023-06-30] MEDS ORDERED: BISACODYL 5 MG EC TAB PO ONE (14:00)
[2023-07-01] VITALS (11 sets, daily range): BP systolic 106–122; BP diastolic 64–71; PULSE 79–103; RESP 16–20; TEMP 98–98.8; O2SAT 93–99
[2023-07-01 05:20] LABS: Basophils # (auto) 0.1 10 ^3/uL (0-0.2); Eosinophils # (auto) 0.4 10 ^3/uL (0-0.8)
[2023-07-01 05:22] LABS: Basophils % (auto) 0.4 % (0.0-2.0); Hematocrit 23.2 % (41.0-53.0); Hemoglobin 7.4 g/dL (13.5-17.5); Lymphocytes # (auto) 1.8 10 ^3/uL (0.4-5.4); Lymphocytes % (auto) 15.6 % (10.0-50.0); Mean Corpuscular Hemoglobin 22.8 pg (28.0-32.0); Mean Corpuscular Hgb Conc. 31.8 g/dL (32.0-36.0); Mean Corpuscular Volume 71.9 fL (80.0-100.0); Monocytes # (auto) 1.5 10 ^3/uL (0-1.3); Monocytes % (auto) 13.2 % (0.0-12.0); Neutrophils # (auto) 7.9 10 ^3/uL (1.6-8.6); Neutrophils % (auto) 67.8 % (37.0-80.0); Red Blood Cells 3.22 10^6/uL (4.5-5.90); White Blood Cell 11.7 10^3/uL (4.4-10.8)
[2023-07-01 05:34] LABS: Alanine Aminotransferase 29 U/L (7-40); Albumin 3.5 g/dL (3.2-4.8); Alkaline Phosphatase 169 U/L (46-116); Anion Gap 8 (5-15); Aspartate Aminotransferase 25 U/L (13-40); BUN/Creatinine Ratio 23.5 (10.0-20.0); Bilirubin, Total 0.5 mg/dL (0.2-1.0); Blood Urea Nitrogen 16 mg/dL (9-23); Calcium 8.5 mg/dL (8.7-10.4); Carbon Dioxide 27 mmol/L (20-30); Chloride 98 mmol/L (98-107); Glucose 76 mg/dL (74-106); Magnesium 1.8 mg/dL (1.6-2.6); Potassium 3.8 mmol/L (3.5-5.1); Sodium 133 mmol/L (136-145); Total Protein 6.2 g/dL (5.7-8.2)
[2023-07-01 05:50] LABS: Red Cell Distribution Width 24.8 % (11.8-14.3)
[2023-07-01] MEDS: traMADol HCL 50 MG TAB PO PRN ×2 (06:21→19:48)
[2023-07-01] MEDS ORDERED: SODIUM CHLORIDE LOCK 10 ML ONE (07:25)
[2023-07-01] MEDS ORDERED: FLUMAZENIL 0.1 MG/ML INJ 10ML MDV IV ONE (07:25)
[2023-07-01] MEDS ORDERED: NALOXONE HCL 0.4 MG/ML VIAL ONE (07:25)
[2023-07-01] MEDS ORDERED: diphenhdrAMINE HCL 50 MG/1 ML VL ONE (07:26)
[2023-07-01] MEDS ORDERED: LIDOCAINE VISCOUS 2% 15ML UD ONE (07:27)
[2023-07-01] MEDS: FERROUS SULFATE 325mg EC TAB PO SCH ×2 (08:00→16:50)
[2023-07-01] MEDS: ENOXAPARIN SOD 100 MG/1 ML SYRINGE SC SCH (08:07)
[2023-07-01] MEDS: PANTOPRAZOLE 40 MG/10 ML VIAL INJ IV SCH ×2 (08:07→19:40)
[2023-07-01] MEDS: NICOTINE 21MG/24 HR TOPICAL PATCH TD SCH (08:08)
[2023-07-01] MEDS: MIDAZOLAM HCL 5 MG/ML-1ML VIAL ONE ×4 (08:15→08:30)
[2023-07-01] MEDS: fentaNYL CITRATE 100 MCG/2 ML VL ONE ×3 (08:15→08:30)
[2023-07-01 09:30] LABS: Anisocytosis Moderate; Hypochromia Slight; Platelet Estimate Increased
[2023-07-01] MEDS ORDERED: BISACODYL 5 MG EC TAB PO ONE (14:30)
[2023-07-01] MEDS ORDERED: GOLYTELY 4L KIT PO ONE (14:30)
[2023-07-01] MEDS: ONDANSETRON HCL 4 MG/2 ML VIAL IV PRN (19:40)
[2023-07-01] MEDS: ENOXAPARIN SOD 80 MG/0.8ML SYRINGE SC SCH (22:00)
[2023-07-01] MEDS: BISACODYL 5 MG EC TAB PO SCH (22:00)
[2023-07-02 05:00] VITALS: BP 110/66; PULSE 78; RESP 18; TEMP 98; O2SAT 96
[2023-07-02 07:42] LABS: Eosinophils # (auto) 0.2 10 ^3/uL (0-0.8); Hematocrit 24.1 % (41.0-53.0); Mean Corpuscular Hemoglobin 22.9 pg (28.0-32.0); Neutrophils # (auto) 6.4 10 ^3/uL (1.6-8.6); Red Blood Cells 3.34 10^6/uL (4.5-5.90)
[2023-07-02 07:44] LABS: Alanine Aminotransferase 22 U/L (7-40); Albumin 3.3 g/dL (3.2-4.8); Alkaline Phosphatase 145 U/L (46-116); Anion Gap 9 (5-15); Aspartate Aminotransferase 22 U/L (13-40); BUN/Creatinine Ratio 18.8 (10.0-20.0); Blood Urea Nitrogen 12 mg/dL (9-23); Calcium 8.2 mg/dL (8.7-10.4); Carbon Dioxide 25 mmol/L (20-30); Chloride 100 mmol/L (98-107); Glucose 66 mg/dL (74-106); Magnesium 1.8 mg/dL (1.6-2.6); Potassium 3.6 mmol/L (3.5-5.1); Sodium 134 mmol/L (136-145)
[2023-07-02 07:45] LABS: Bilirubin, Total 0.4 mg/dL (0.2-1.0); Total Protein 5.9 g/dL (5.7-8.2)
[2023-07-02 07:49] LABS: Basophils # (auto) 0 10 ^3/uL (0-0.2); Basophils % (auto) 0.5 % (0.0-2.0); Eosinophils % (auto) 2.1 % (0.0-7.0); Hemoglobin 7.7 g/dL (13.5-17.5); Lymphocytes # (auto) 1.4 10 ^3/uL (0.4-5.4); Lymphocytes % (auto) 14.7 % (10.0-50.0); Mean Corpuscular Hgb Conc. 31.8 g/dL (32.0-36.0); Mean Corpuscular Volume 72.1 fL (80.0-100.0); Monocytes # (auto) 1.4 10 ^3/uL (0-1.3); Monocytes % (auto) 14.5 % (0.0-12.0); Neutrophils % (auto) 68.2 % (37.0-80.0); White Blood Cell 9.3 10^3/uL (4.4-10.8)
[2023-07-02 07:50] LABS: Red Cell Distribution Width 24.6 % (11.8-14.3)
[2023-07-02] MEDS: FERROUS SULFATE 325mg EC TAB PO SCH ×2 (08:52→18:58)
[2023-07-02 09:00] VITALS: BP 110/67; PULSE 84; RESP 19; TEMP 98.4; O2SAT 96
[2023-07-02] MEDS: ENOXAPARIN SOD 80 MG/0.8ML SYRINGE SC SCH (10:00)
[2023-07-02] MEDS: BISACODYL 5 MG EC TAB PO SCH ×2 (10:00→21:54)
[2023-07-02] MEDS: PANTOPRAZOLE 40 MG/10 ML VIAL INJ IV SCH ×2 (10:01→21:54)
[2023-07-02] MEDS: NICOTINE 21MG/24 HR TOPICAL PATCH TD SCH (10:01)
[2023-07-02 13:00] VITALS: BP 113/64; PULSE 86; RESP 18; TEMP 97.7; O2SAT 97
[2023-07-02] MEDS: MORPHINE SULFATE INJ 2 MG/ml SYRG IV PRN ×3 (13:12→21:58)
[2023-07-02] MEDS ORDERED: fentaNYL CITRATE 100 MCG/2 ML VL ONE (13:39)
[2023-07-02] MEDS ORDERED: IODIXANOL 320MG/ML 100ML BTL IV ONE (13:39)
[2023-07-02] MEDS ORDERED: MIDAZOLAM HCL 2MG/2ML 2ml VIAL (1mg/ml) ONE (13:39)
[2023-07-02] MEDS ORDERED: LIDOCAINE 2%HCL (LOCAL ANESTH.) INJ 20ML MDV ONE (13:39)
[2023-07-02] MEDS: ONDANSETRON HCL 4 MG/2 ML VIAL IV PRN ×2 (16:15→21:54)
[2023-07-02 17:00] VITALS: BP 122/92; PULSE 85; RESP 18; TEMP 98.1; O2SAT 94
[2023-07-02 22:00] VITALS: BP 108/62; PULSE 90; RESP 18; TEMP 97.8; O2SAT 94
[2023-07-03] MEDS: ONDANSETRON HCL 4 MG/2 ML VIAL IV PRN ×2 (02:46→13:15)
[2023-07-03 05:00] VITALS: BP 103/62; PULSE 95; RESP 18; TEMP 98; O2SAT 98
[2023-07-03] MEDS: MORPHINE SULFATE INJ 2 MG/ml SYRG IV PRN ×2 (06:35→13:22)
[2023-07-03 07:10] LABS: Basophils # (auto) 0 10 ^3/uL (0-0.2); Eosinophils # (auto) 0.1 10 ^3/uL (0-0.8); Eosinophils % (auto) 0.9 % (0.0-7.0); Hemoglobin 7.9 g/dL (13.5-17.5); Mean Corpuscular Volume 72.9 fL (80.0-100.0)
[2023-07-03 07:13] LABS: Basophils % (auto) 0.2 % (0.0-2.0); Hematocrit 24.7 % (41.0-53.0); Lymphocytes # (auto) 1.3 10 ^3/uL (0.4-5.4); Lymphocytes % (auto) 15.2 % (10.0-50.0); Mean Corpuscular Hemoglobin 23.5 pg (28.0-32.0); Mean Corpuscular Hgb Conc. 32.2 g/dL (32.0-36.0); Monocytes # (auto) 1.1 10 ^3/uL (0-1.3); Monocytes % (auto) 13.6 % (0.0-12.0); Neutrophils # (auto) 5.9 10 ^3/uL (1.6-8.6); Neutrophils % (auto) 70.1 % (37.0-80.0); Nucleated Red Blood Cells % 0.1 %; Red Blood Cells 3.38 10^6/uL (4.5-5.90); White Blood Cell 8.4 10^3/uL (4.4-10.8)
[2023-07-03 07:25] LABS: Red Cell Distribution Width 25.4 % (11.8-14.3)
[2023-07-03 07:31] LABS: Alanine Aminotransferase 20 U/L (7-40); Albumin 3.4 g/dL (3.2-4.8); Alkaline Phosphatase 163 U/L (46-116); Anion Gap 8 (5-15); Aspartate Aminotransferase 22 U/L (13-40); BUN/Creatinine Ratio 19.7 (10.0-20.0); Bilirubin, Total 0.4 mg/dL (0.2-1.0); Blood Urea Nitrogen 13 mg/dL (9-23); Calcium 8.2 mg/dL (8.7-10.4); Carbon Dioxide 26 mmol/L (20-30); Chloride 98 mmol/L (98-107); Glucose 82 mg/dL (74-106); Magnesium 1.9 mg/dL (1.6-2.6); Potassium 3.8 mmol/L (3.5-5.1); Sodium 132 mmol/L (136-145); Total Protein 6.2 g/dL (5.7-8.2)
[2023-07-03 08:00] VITALS: BP 115/63; PULSE 97; RESP 18; TEMP 97.8; O2SAT 99
[2023-07-03] MEDS ORDERED: OMNIPAQUE 12mg/ml 500ml ORAL SOLUTION PO ONE (08:12)
[2023-07-03 09:00] VITALS: BP 115/63; PULSE 97; RESP 18; TEMP 97.8; O2SAT 99
[2023-07-03] MEDS: NICOTINE 21MG/24 HR TOPICAL PATCH TD SCH (10:00)
[2023-07-03 10:57] LABS: Platelet Estimate Increased
[2023-07-03 10:58] LABS: Anisocytosis Moderate; Hypochromia Moderate
[2023-07-03] MEDS: PANTOPRAZOLE 40 MG/10 ML VIAL INJ IV SCH (11:21)
[2023-07-03] MEDS: BISACODYL 5 MG EC TAB PO SCH (11:22)
[2023-07-03] MEDS: FERROUS SULFATE 325mg EC TAB PO SCH (11:22)
[2023-07-03 13:00] VITALS: BP 104/63; PULSE 96; RESP 19; TEMP 98.4; O2SAT 97
[2023-07-03 15:07] VITALS: BP 104/63; PULSE 96; RESP 19; TEMP 98.4; O2SAT 97
== END 2023-07-03 16:33 | disposition home or self-care (01) | DRG 240 ==
LOC: ER 12:40 → OVERFLOW 14:43 → WEST WING 23:30
PROVIDERS: ADMIT Internal Medicine; ATTEND Internal Medicine
PROC: 30233N1 Transfusion of Nonautologous Red Blood Cells into Peripheral Vein, Percutaneous Approach (ICD-10-PCS; principal; 2023-06-29)
PROC: 0DJD8ZZ Inspection of Lower Intestinal Tract, Via Natural or Artificial Opening Endoscopic (ICD-10-PCS; 2023-07-01)
PROC: 0DB98ZX Excision of Duodenum, Via Natural or Artificial Opening Endoscopic, Diagnostic (ICD-10-PCS; 2023-07-01 08:08)
PROC: 06H03DZ Insertion of Intraluminal Device into Inferior Vena Cava, Percutaneous Approach (ICD-10-PCS; 2023-07-02)
DX: C17.0 Malignant neoplasm of duodenum (principal); I26.99 Other pulmonary embolism without acute cor pulmonale; C78.7 Secondary malignant neoplasm of liver and intrahepatic bile duct; E11.9 Type 2 diabetes mellitus without complications; D50.9 Iron deficiency anemia, unspecified; F17.210 Nicotine dependence, cigarettes, uncomplicated; K40.90 Unilateral inguinal hernia, without obstruction or gangrene, not specified as recurrent; R74.01 Elevation of levels of liver transaminase levels; Z79.01 Long term (current) use of anticoagulants; Z86.718 Personal history of other venous thrombosis and embolism; Z86.711 Personal history of pulmonary embolism
CPT/HCPCS: 36415; 37619; 71046; 71275; 74177; 80053; 81001; 83735; 84484; 85025; 85610; 85730; 86850; 86900; 86901; 86920; 87081; 93005; 94640; 99152; 99291; C1894; C9113; G0378; J2250; J2405; Q9967